=== PATIENT | female | born 1970 | race Caucasian/White ===

== ENCOUNTER 2016-11-07 12:19 | Day surgery (SDC) | END 2016-11-07 18:23 | disposition home or self-care (01) | DX: K29.70 Gastritis, unspecified, without bleeding (principal); K64.8 Other hemorrhoids; E11.9 Type 2 diabetes mellitus without complications; I10 Essential (primary) hypertension; E66.01 Morbid (severe) obesity due to excess calories; Z68.41 Body mass index [BMI] 40.0-44.9, adult | CPT/HCPCS: 43239; 45378; 82962; 84703; 88305; J2250; Z7610 ==

== ENCOUNTER 2017-03-01 03:15 | Emergency (ER) | payer OTHER ==
[~2017-03-01] VITALS: Ht 172.7 cm; Wt 128.0 kg
[~2017-03-01 03:15] MED LIST: ASPI81TA3 PO; FER325 PO; GLIM2TAB PO; HYOS0.1297 SL; LORA0.5T PO; LORA10TA3 PO; MEGE20TA6 PO; MIRT15TA PO; MONT10TA21 PO; NALT50TA9 PO; OMEG-135 PO; OMEP20CA16 PO; PROP40TA4 PO; SPIR50TA PO; VENL75TA2 PO; VITA150T PO
[2017-03-01 03:18] VITALS: Ht 172.7 cm; Wt 128.0 kg
--- NOTE | 2017-03-01 05:46 | RADRPT ---
PROCEDURE: XR Chest. CLINICAL INDICATION: cough TECHNIQUE: Single frontal view of the chest was obtained COMPARISON: None FINDINGS: The heart and mediastinum are within normal limits. The lungs are clear. There is no pleural effusion or pneumothorax. IMPRESSION: No acute pulmonary disease. RPTAT: HRS[facility] Physician Becky Date Time Electronically viewed and signed by Olvin Thompson Physician on 03/01/2017 05:46 RR/
[2017-03-01] MEDS ORDERED: BENZ100C70 PO (05:54)
[2017-03-01] MEDS ORDERED: ALBU18HF INHALATION (05:55)
--- NOTE | 2017-03-01 05:59 | ERD ---
ER Documentation Chief Complaint Chief Complaint cough/sob x 3 weeks HPI 6-year-old female patient with past medical history of diabetes, hypertension, sleep apnea presents to the ED complaining of 3 weeks of cough and slight shortness of breath. Reports that she has sleep apnea. She reports that her cough is productive clear sputum. States that she is taking aspirin, Vyvanse, loratadine, propranolol, spironolactone, glimepiride, Singulair, metformin, lorazepam. Denies any recent traveling. Denies any leg swelling. Denies any, vomiting, diarrhea, abdominal pain, chest pain, dyspnea on exertion, orthopnea, wheezing, fever. ROS All systems reviewed and are negative except as per history of present illness. Medications Home Meds Active Scripts Albuterol Sulfate* (Ventolin HFA*) 18 Gm Hfa.aer.ad, 2 PUFF INHALATION Q6H, #1 INHALER Prov:BECKIE KU PA-C 03/01/17 Benzonatate* (Tessalon Perle*) 100 Mg Capsule, 100 MG PO Q8H Y for COUGH, #20 CAP Prov:BECKIE KU PA-C 03/01/17 Reported Medications Naltrexone Hcl (Revia) 50 Mg Tablet, 100 MG PO, TAB 11/07/16 Glimepiride* (Glimepiride*) 2 Mg Tablet, 2 MG PO WITH BREAKFAST, TAB 11/07/16 Aspirin* (Aspirin* Chew) 81 Mg Tab.chew, 81 MG PO DAILY, TAB.CHEW 11/07/16 Solgohachia-3 Fatty Acids/Fish Oil (Fish Oil 1,000 mg Capsule) 1 Each Capsule, 1 EACH PO, CAP 03/05/16 Vitamin B Complex & Vit C No.4 (Super B Complex) 150 Mg Tablet, 150 MG PO, TAB 03/05/16 Ferrous Sulfate* (Ferrous Sulfate*) 325 Mg Tabec, 325 MG PO DAILY, TAB 03/05/16 Mirtazapine* (Remeron*) 15 Mg Tablet, 15 MG PO HS, TAB 03/05/16 Lorazepam* (Lorazepam*) 0.5 Mg Tablet, 0.5 MG PO Q6 Y for ANXIETY, TAB 03/05/16 Hyoscyamine Sulfate* (Hyoscyamine Sulfate*) 0.125 Mg Tab.subl, 0.125 MG SL Q4H Y for ALLERGIC REACTION, TAB 03/05/16 Montelukast Sodium* (Singulair*) 10 Mg Tablet, 10 MG PO QHS, #30 TAB 03/05/16 Megestrol Acetate* (Megestrol Acetate*) 20 Mg Tablet, 20 MG PO QID, TAB 03/05/16 Venlafaxine Hcl* (Effexor XR*) 75 Mg Tab.er.24, 75 MG PO DAILY, TAB.SA 03/05/16 Loratadine* (Loratadine*) 10 Mg Tablet, 10 MG PO DAILY, #30 TAB 03/05/16 Spironolactone* (Aldactone*) 50 Mg Tablet, 50 MG PO DAILY, #30 TAB 03/05/16 Omeprazole* (Omeprazole*) 20 Mg Capsule.dr, 20 MG PO BID, #60 CAP 03/05/16 Propranolol Hcl* (Propranolol Hcl*) 40 Mg Tablet, 40 MG PO TID, TAB 03/05/16 Allergies Allergies: Coded Allergies: Penicillins (Verified Allergy, Unknown, 03/01/17) ibuprofen (Verified Allergy, Unknown, swelling, 03/01/17) PMhx/Soc History of Surgery: Yes (, CHLECYSECTOMY, CHIN, NOSE SURGERY) Anesthesia Reaction: No Hx Neurological Disorder: No Hx Respiratory Disorders: Yes (ALLERGIES) Hx Cardiac Disorders: Yes (HYPERTENSION) Hx Psychiatric Problems: No Hx Miscellaneous Medical Probl: Yes (FATTY LIVER, OBESITY) Hx Alcohol Use: No Hx Substance Use: No Hx Tobacco Use: No Smoking Status: Never smoker Physical Exam Vitals Vital Signs Date Time Temp Pulse Resp B/P Pulse Ox O2 Delivery O2 Flow Rate FiO2 03/01/17 03:18 98.1 68 20 128/60 98 Physical Exam Const: Ikb-[id number]-pbglnziro, well-nourished. In no acute distress. Head: Atraumatic, normocephalic Eyes: Normal Conjunctiva without injection. No purulent discharge. PERRL. EOMI ENT: Normal external ear. Ear canal without erythema. Tympanic membrane pearly jesus without effusion or bulging. Nasal canal clear with normal turbinates. Moist oropharynx without tonsillar exudates. Non-erythematous pharynx. Uvula midline. No drooling. No trismus. Neck: Full range of motion. No meningismus. No cervical lymphadenopathy. Resp: Clear to auscultation bilaterally. No wheezing, rhonchi, rales, or crackles. No accessory muscle use. No retractions. Cardio: Regular rate and rhythm. No murmurs, rubs or gallops. Abd: Soft, non tender, non distended. Normal bowel sounds. No palpable masses. No rebound tenderness. No guarding. Skin: No petechiae or rashes Back: No midline tenderness. No CVA tenderness. Ext: No cyanosis, or edema. Neur: Awake and alert. Psych: Normal Mood and Affect Procedures/MDM 46-year-old female patient with no significant past medical history presents to the ED complaining of a productive cough with clear sputum and slight shortness of breath. Patient is afebrile and nontoxic-appearing. Patient has normal vital signs. Chest x-ray was ordered to further evaluate patient. PROCEDURE: XR Chest. CLINICAL INDICATION: cough TECHNIQUE: Single frontal view of the chest was obtained COMPARISON: None FINDINGS: The heart and mediastinum are within normal limits. The lungs are clear. There is no pleural effusion or pneumothorax. IMPRESSION: No acute pulmonary disease. This patient presents to the ED with symptoms consistent with a viral acute upper respiratory infection. Patient is afebrile and has normal vital signs. Patient's physical exam include lungs which were clear to auscultation and a normal pulse oximetry. There is a low suspicion for pneumonia, pneumothorax, mononucleosis, pulmonary embolism, epiglottitis, otitis media, otitis externa, viral/strep pharyngitis, sinusitis, peritonsillar abscess, mastoiditis, retropharyngeal abscess, meningitis, sepsis, acute abdomen or other emergent conditions. Fluids, rest, and symptomatic treatment are recommended for the management of patient's symptoms. Discharge medications: Tessalon Perles, Ventolin Patient was instructed to return to the ED for any new or worsening symptoms. They should otherwise follow up with the primary care provider within 1-2 days. The patient's questions were answered at the time of discharge. Patient understood and agreed with discharge management. Departure Diagnosis: Primary Impression: Cough Condition: Stable Patient Instructions: Bronchitis, No Antibiotic (Adult) Referrals: [facility] (PCP) [facility] YOU HAVE RECEIVED A MEDICAL SCREENING EXAM AND THE RESULTS INDICATE THAT YOU DO NOT HAVE A CONDITION THAT REQUIRES URGENT TREATMENT IN THE EMERGENCY DEPARTMENT. FURTHER EVALUATION AND TREATMENT OF YOUR CONDITION CAN WAIT UNTIL YOU ARE SEEN IN YOUR DOCTORS OFFICE WITHIN THE NEXT 1-2 DAYS. IT IS YOUR RESPONSIBILITY TO MAKE AN APPOINTMENT FOR FOLOW-UP CARE. IF YOU HAVE A PRIMARY DOCTOR --you should call your primary doctor and schedule an appointment IF YOU DO NOT HAVE A PRIMARY DOCTOR YOU CAN CALL OUR PHYSICIAN REFERRAL HOTLINE AT IF YOU CAN NOT AFFORD TO SEE A PHYSICIAN YOU CAN CHOSE FROM THE FOLLOWING [facility] [address] [facility] [address] [facility] [address] [facility] [address] [facility] [address] [facility]. [facility] [address] [facility]. [facility] YOU HAVE RECEIVED A MEDICAL SCREENING EXAM AND THE RESULTS INDICATE THAT YOU DO NOT HAVE A CONDITION THAT REQUIRES URGENT TREATMENT IN THE EMERGENCY DEPARTMENT. FURTHER EVALUATION AND TREATMENT OF YOUR CONDITION CAN WAIT UNTIL YOU ARE SEEN IN YOUR DOCTORS OFFICE WITHIN THE NEXT 1-2 DAYS. IT IS YOUR RESPONSIBILITY TO MAKE AN APPOINTMENT FOR FOLOW-UP CARE. IF YOU HAVE A PRIMARY DOCTOR --you should call your primary doctor and schedule and appointment IF YOU DO NOT HAVE A PRIMARY DOCTOR YOU CAN CALL OUR PHYSICIAN REFERRAL HOTLINE AT . IF YOU CAN NOT AFFORD TO SEE A PHYSICIAN YOU CAN CHOSE FROM THE FOLLOWING [facility] INSTITUTIONS: [facility] [address] [place] [address] [facility] [address] [place] [address] [facility] [address] [place] [address] [facility] U[facility]ENT [facility]/SPECIALTIES Additional Instructions: Call your primary care doctor TOMORROW for an appointment during the next 2-3 days.See the doctor sooner or return here if your condition worsens before your appointment time. BECKIE KU PA-C Mar 01, 2017 05:59
[2017-03-01 06:03] VITALS: BP 115/65; PULSE 75; RESP 18; TEMP 98.1
== END 2017-03-01 06:03 | disposition home or self-care (01) ==
LOC: FTE 03:15
DX: R05 Cough (principal); E11.9 Type 2 diabetes mellitus without complications; I10 Essential (primary) hypertension; E66.9 Obesity, unspecified; Z68.41 Body mass index [BMI] 40.0-44.9, adult
CPT/HCPCS: 71010